=== PATIENT | female | born 1995 | race African-American/Black ===

== ENCOUNTER 2016-04-17 22:13 | Emergency (ER) | payer OTHER ==
[~2016-04-17] VITALS: Ht 167.6 cm; Wt 83.3 kg
[2016-04-17 22:14] VITALS: BP 103/64; PULSE 84; RESP 18; TEMP 97.4; O2SAT 99
--- NOTE | 2016-04-17 22:41 | PD ---
HPI Chief Complaint: R EAR PAIN Time Seen by Provider: 22:35 Travel History International Travel<30 days: No Contact w/Intl Traveler<30days: No History of Present Illness HPI Patient is a 20-year-old female chief complaint of right ear pain. Present for 6 weeks. Present daily. It is achy and sometimes sharp. She feels like sound is muffled. No history of cerumen impaction. She did put peroxide in the ear canal which did not help. She denies otorrhea. She denies tinnitus and dizziness. She denies fevers. She does have some intermittent nasal irritation but denies any acute nose or throat symptoms. She has a history of asthma and allergies as a child. She denies current . [facility] [place] Past Medical History Asthma: Yes Diminished Hearing: No Gastrointestinal Disorders: No Immunizations Current: Yes Past Surgical History Other Surgery: No Social History Alcohol Use: No Tobacco Use: No Substance Use: No Allergies-Medications (Allergen,Severity, Reaction): Coded Allergies: No Known Allergies (Verified , 02/24/16) Reported Meds & Prescriptions Reported Meds & Active Scripts Active Active Prescriptions or Reported Medications Unobtainable Review of Systems General / Constitutional: No: Fever HENT: Positive: Rhinitis (intermittent, chronic), Earache, No: Vertigo, Lightheadedness, Sore Throat, Rhinorrhea, Congestion, Ear Discharge Respiratory: No: Cough Physical Exam Narrative GENERAL: Well-developed and well-nourished adult female in no acute distress. SKIN: Warm and dry. Good turgor without tenting. HEAD: Normocephalic and atraumatic. EYES: PERRL bilaterally, 5mm. EOMI bilaterally. No injection or icterus present. No proptosis. Lids without edema or erythema. ENT: Bilateral ear canals are non-edematous/non-erythematous without otorrhea. Right TM is slightly bulging and there is a small air-fluid level without evidence of perforation or erythema. Left TM has intact landmarks and without distortion, perforation, air-fluid level or erythema. Nasal mucosa edematous, blue and boggy without discharge, septum intact and midline. Buccal mucosa pink and moist. Oropharynx free of erythema, tonsillar hypertrophy, masses, swelling , asymmetry and exudates. Uvula midline and airway patent. NECK: Supple, no midline tenderness, crepitus or step-offs. Trachea midline, no JVD. No cervical or facial lymphadenopathy. CARDIOVASCULAR: Regular rate and rhythm without murmurs, rubs, clicks or gallops. RESPIRATORY: Clear to auscultation bilaterally with symmetrical rise and fall, no distress or use of accessory muscles. MUSCULOSKELETAL: No gait disturbances. Patient freely moving all four extremities spontaneously. Extremities without clubbing, cyanosis, or edema. No obvious deformities. NEUROLOGIC: CN II-XII grossly intact. Awake and alert. Motor grossly within normal limits. Normal speech. PSYCHIATRIC: Appropriate mood and affect; insight and judgment normal. Data Data Last Documented VS Vital Signs Date Time Temp Pulse Resp B/P Pulse Ox O2 Delivery O2 Flow Rate FiO2 04/17/16 22:14 97.4 84 18 103/64 99 MDM Medical Decision Making Medical Screen Exam Complete: Yes Emergency Medical Condition: Yes Differential Diagnosis Eustachian tube dysfunction versus otitis media versus otitis externa versus allergies Narrative Course Patient is a 20-year-old female with history and physical suggestive of eustachian tube dysfunction. She has evidence of rhinitis as well, likely allergic. She is afebrile there is no sign of infection. Recommend OTC products and follow-up with PCP.See discharge paperwork for further instructions. The plan was discussed with the patient who acknowledged their understanding and agreement. Reinforced the follow-up with primary care is critically important. Patient instructed on emergent conditions that should prompt return to ED. Diagnosis Primary Impression: Eustachian tube dysfunction Qualified Code: H69.81 - Eustachian tube dysfunction, right Patient Instructions: Eustachian Tube Dysfunction (GEN), General Instructions Additional Instructions: Recommend the following OTC products: -Zyrtec -Nasacort nasal spray -Pseudoephedrine or other decongestants Follow-up with your PCP in 2-3 days Return to the ED for any acute worsening of symptoms Scripts No Active Prescriptions or Reported Meds Disposition: 01 DISCHARGE HOME Condition: Stable Haris Rollins III Apr 17, 2016 22:41
== END 2016-04-17 23:08 | disposition home or self-care (01) ==
LOC: PHEFT 22:13
DX: H69.81 Other specified disorders of Eustachian tube, right ear (principal); J31.0 Chronic rhinitis; Z87.09 Personal history of other diseases of the respiratory system
CPT/HCPCS: 99282

== ENCOUNTER 2016-05-22 19:03 | Emergency (ER) | payer OTHER ==
[~2016-05-22] VITALS: Ht 168.9 cm; Wt 85.8 kg
[2016-05-22 19:05] VITALS: BP 106/73; PULSE 91; RESP 18; TEMP 98.3; O2SAT 98
--- NOTE | 2016-05-22 19:34 | PD ---
HPI Chief Complaint: Numbness/Tingling Time Seen by Provider: 19:16 Travel History International Travel<30 days: No Contact w/Intl Traveler<30days: No Traveled to known affect area: No History of Present Illness HPI 20-year-old female complains of headache, left-sided numbness and weakness. Patient states that she has intermittent headache for the past 4 months. Patient states that headache aching headache diffuse over the head. Patient states that she has mild photophobia and nausea with the headache. Patient denies any recent head injury. Patient denies any neck pain. Patient denies any chest pain or shortness of breath. Patient states that she has intermittent left arm left leg numbness and weakness for the past 3 weeks. Patient states that the symptoms usually happen at night and lasted about 2 minutes and resolved completely. Patient denies abdominal pain. Patient denies any dysuria or frequency. Patient denies any fever chills. PFSH Past Medical History Asthma: Yes Diminished Hearing: No Gastrointestinal Disorders: No Immunizations Current: Yes ?: Not LMP: 05-07-16 Past Surgical History Other Surgery: No Social History Alcohol Use: No Tobacco Use: No Substance Use: No Allergies-Medications (Allergen,Severity, Reaction): Coded Allergies: No Known Allergies (Verified , 05/22/16) Reported Meds & Prescriptions Reported Meds & Active Scripts Active Active Prescriptions or Reported Medications Unobtainable Review of Systems General / Constitutional: No: Fever Eyes: No: Visual changes HENT: Positive: Headaches Cardiovascular: No: Chest Pain or Discomfort Respiratory: No: Shortness of Breath Gastrointestinal: No: Abdominal Pain Genitourinary: No: Dysuria Musculoskeletal: No: Pain Skin: No Rash Neurologic: Positive: Weakness, Paresthesia Psychiatric: No: Depression Endocrine: No: Polydipsia Hematologic/Lymphatic: No: Easy Bruising Physical Exam Narrative GENERAL: Well-nourished, well-developed patient. SKIN: Warm and dry. HEAD: Normocephalic. EYES: No scleral icterus. No injection or drainage. Pupils 2 mm equal reactive. NECK: Supple, trachea midline. No JVD or lymphadenopathy. No meningismus. No tenderness on palpation. CARDIOVASCULAR: Regular rate and rhythm without murmurs, gallops, or rubs. RESPIRATORY: Breath sounds equal bilaterally. No accessory muscle use. GASTROINTESTINAL: Abdomen soft, non-tender, nondistended. MUSCULOSKELETAL: No cyanosis, or edema. BACK: Nontender without obvious deformity. No CVA tenderness. Neurologic exam: Patient's awake alert oriented 3. No obvious focal neurological deficit. Data Data Last Documented VS Vital Signs Date Time Temp Pulse Resp B/P Pulse Ox O2 Delivery O2 Flow Rate FiO2 05/22/16 19:20 16 98 Room Air 05/22/16 19:05 98.3 91 106/[address] Brain W/O Iv Contrast(Rout) (05/22/16 19:28) [facility] Medical Decision Making Medical Screen Exam Complete: Yes Emergency Medical Condition: Yes Interpretation(s) Last Impressions Head CT 05/22/161927 Signed Impressions: Service Date/Time: Sunday, May 22, 2016 19:41 - CONCLUSION: Negative noncontrast CT. Victor Hugo Pena MD Differential Diagnosis Differential diagnosis including tension headache, cluster headache, migraine headache, neuropathy, neuralgia, TIA, CVA. Narrative Course 20-year-old female with headache, intermittent weakness and numbness of left arm left leg. Diagnosis Primary Impression: Cephalgia Qualified Code: R51 - Nonintractable episodic headache, unspecified headache type Additional Impression: Neuralgia Patient Instructions: General Instructions Additional Instructions: Fioricet as needed for headache. Follow-up with personal physician and neurologist. Return if worse. Med/Other Pt SpecificInfo: Prescription(s) given Scripts Exzvxglqmg-Rjnzmzqotpdjg-Jfqbhatd (Fioricet)50-300-40 Mg Cap1-2 Cap PO Q6H PRN ( HEADACHE) #20 CAP Ref 0 Prov:Azael Nelson MD 05/22/16 Disposition: 01 DISCHARGE HOME Condition: Stable Azael Nelson MD May 22, 2016 19:34
--- NOTE | 2016-05-22 20:10 | RADHPO ---
EXAM DATE/TIME: 05/22/2016 19:41 [facility] COMPARISON: No previous studies available for comparison. INDICATIONS : Headaches with left sided weakness for two weeks. RADIATION DOSE: 60.51 CTDIvol (mGy) MEDICAL HISTORY : None SURGICAL HISTORY : None. ENCOUNTER: Initial ACUITY: 2 weeks PAIN SCALE: 5/10 LOCATION: cranial TECHNIQUE: Multiple contiguous axial images were obtained of the head. Using automated exposure control and adj ustment of the mA and/or kV according to patient size, radiation dose was kept as low as reasonably a chievable to obtain optimal diagnostic quality images. FINDINGS: CEREBRUM: The ventricles are normal for age. No evidence of midline shift, mass lesion, hemorrhage or acute in farction. No extra-axial fluid collections are seen. POSTERIOR FOSSA: The cerebellum and brainstem are intact. The 4th ventricle is midline. The cerebellopontine angle i s unremarkable. EXTRACRANIAL: The visualized portion of the orbits is intact. SKULL: The calvaria is intact. No evidence of skull fracture. CONCLUSION: Negative noncontrast CT. Victor Hugo Pena MD on May 22, 2016 at 20:01 Board Certified Radiologist. This report was verified electronically.
[2016-05-22] MEDS ORDERED: BUTA1CAP PO (20:41)
[2016-05-22 20:51] VITALS: BP 90/54
== END 2016-05-22 20:53 | disposition home or self-care (01) ==
LOC: PHED 19:03
DX: R51 Headache (principal); M79.2 Neuralgia and neuritis, unspecified; R20.0 Anesthesia of skin; M62.81 Muscle weakness (generalized); J45.909 Unspecified asthma, uncomplicated
CPT/HCPCS: 70450

== ENCOUNTER 2016-06-23 17:50 | Emergency (ER) | payer OTHER ==
[~2016-06-23] VITALS: Ht 167.6 cm; Wt 87.6 kg
[~2016-06-23 17:50] MED LIST: BUTA1CAP PO
[2016-06-23 17:52] VITALS: BP 119/55; PULSE 88; RESP 16; TEMP 98.2; O2SAT 98
--- NOTE | 2016-06-23 17:58 | PD ---
HPI Chief Complaint: Chest Pain Time Seen by Provider: 17:58 Travel History International Travel<30 days: No Contact w/Intl Traveler<30days: No Traveled to known affect area: No History of Present Illness HPI 20-year-old female came to the emergency room with history of on and off chest pain for past 1-2 weeks. Patient points to the middle of her chest and says sometimes it radiates to the left hand side. She describes the pain as sharp when it comes and makes her chest came in. Currently she says she has no pain. Her last episode was an hour ago when she was driving. No history of syncopal episode or shortness of breath. No aggravating or relieving factors. Vital signs were stable. Patient is otherwise a healthy person. She is not a smoker. No recent long distance travel or any hospitalization or procedures. [facility] Past Medical History Narrative Medical List of her past medical, surgical, social and family history was reviewed from the nursing note. Asthma: Yes Diminished Hearing: No Gastrointestinal Disorders: No Immunizations Current: Yes ?: Not LMP: 06/01/2016 Past Surgical History Other Surgery: No Social History Alcohol Use: No Tobacco Use: No Substance Use: No Allergies-Medications (Allergen,Severity, Reaction): Coded Allergies: No Known Allergies (Verified , 06/24/16) Comments No known drug allergies. Reported Meds & Prescriptions Reported Meds & Active Scripts Active No Active Prescriptions or Reported Medications Narrative Medication List of her home medications reviewed from the nursing note. Review of Systems Except as stated in HPI: all other systems reviewed are Neg Physical Exam Narrative GENERAL: Awake, alert, no obvious distress SKIN: Focused skin assessment warm/dry. HEAD: Atraumatic. Normocephalic. EYES: Pupils equal and round. No scleral icterus. No injection or drainage. ENT: No nasal bleeding or discharge. Mucous membranes pink and moist. NECK: Trachea midline. No JVD. CARDIOVASCULAR: Regular rate and rhythm. No murmur appreciated. RESPIRATORY: No accessory muscle use. Clear to auscultation. Breath sounds equal bilaterally. No tenderness over the chest area on palpation GASTROINTESTINAL: Abdomen soft, non-tender, nondistended. Hepatic and splenic margins not palpable. MUSCULOSKELETAL: No obvious deformities. No clubbing. No cyanosis. No edema. NEUROLOGICAL: Awake and alert. No obvious cranial nerve deficits. Motor grossly within normal limits. Normal speech. PSYCHIATRIC: Appropriate mood and affect; insight and judgment normal. Data Data Last Documented VS Orders Electrocardiogram (06/23/16 ) Chest, Pa & Lat (06/23/16 ) [facility] Medical Decision Making Medical Screen Exam Complete: Yes Emergency Medical Condition: Yes Medical Record Reviewed: Yes Interpretation(s) Twelve-lead EKG was reviewed by me. Normal sinus rhythm, normal axis, nonspecific ST-T wave changes. Heart rate of 85 bpm Differential Diagnosis Costochondritis, muscle pain, chest wall pain Narrative Course 6:40 PM chest x-ray was within normal limits. Given the fact that patient has noticed factor and her age I'm comfortable discharging her home based on the normal EKG and chest x-ray. She will go home with instructions which I have discussed with her as well. She is comfortable with this plan. Procedures EKG Prior to Arrival: No Diagnosis Primary Impression: Nonspecific chest pain Referrals: Primary Care Physician Additional Instructions: Please return to the ER if the condition worsens or any other new concerns. Take Motrin/ibuprofen/Advil or Tylenol for pain. Warm compresses alternating with cold compresses if the pain returns. Follow-up with your primary care. Scripts No Active Prescriptions or Reported Meds Disposition: DISCHARGE HOME Condition: Eduardo Cherry MD Jun 23, 2016 17:58 Please return to the ER if the condition worsens or any other new concerns. Take Motrin/ibuprofen/Advil or Tylenol for pain. Warm compresses alternating with cold compresses if the pain returns. Follow-up with your primary care. Scripts No Active Prescriptions or Reported Meds Disposition: DISCHARGE HOME Condition: Eduardo Cherry MD Jun 23, 2016 17:58
--- NOTE | 2016-06-23 18:40 | RADHPO ---
EXAM DATE/TIME: 06/23/2016 18:22 [facility] COMPARISON: CHEST PA & LAT, January 10, 2015, 20:59. INDICATIONS : Chest pain. MEDICAL HISTORY : None. SURGICAL HISTORY : None. ENCOUNTER: Initial ACUITY: 1 week PAIN SCORE: Non-responsive. LOCATION: Bilateral chest FINDINGS: PA and lateral views of the chest demonstrate the lungs to be symmetrically aerated without evidence of mass, infiltrate or effusion. The cardiomediastinal contours are unremarkable. Osseous structure s are intact. CONCLUSION: Normal examination. Gamaliel Montoya Jr., MD on June 23, 2016 at 18:38 Board Certified Radiologist. This report was verified electronically.
[2016-06-23 18:52] VITALS: BP 120/60; PULSE 86; RESP 16; O2SAT 100
--- NOTE | 2016-06-24 13:51 | EKG ---
Date Performed: 06/23/2016 Time Performed: 18:31:34 PTAGE: 20 years EKG: Sinus rhythm Normal ECG Compared to prior tracing no significant change PREVIOUS TRACING 02/24/2016 21.11 DOCTOR: Herbie Mejía Interpretating Date/Time 06/24/2016 13:49:06
== END 2016-06-23 19:05 | disposition home or self-care (01) ==
LOC: PHED 17:50
DX: R07.9 Chest pain, unspecified (principal); Z87.09 Personal history of other diseases of the respiratory system
CPT/HCPCS: 71020; 93005

== ENCOUNTER 2016-06-24 17:10 | Emergency (ER) | payer OTHER ==
[~2016-06-24] VITALS: Ht 170.2 cm; Wt 82.0 kg
[2016-06-24 17:13] VITALS: BP 134/57; PULSE 86; RESP 15; TEMP 98.2; O2SAT 98
--- NOTE | 2016-06-24 17:22 | PD ---
Physical Exam Time Seen by Provider: 17:20 Narrative 20yo F c/o rash to Left lower leg today. Was at beach and thinks she may have been stung by something. Reports bleeding under all her toenails that resolved. Denies fever, vomiting. Denies SOB, airway edema. Patient stable. Patient seen in triage. Awaiting bed placement. Data Data Last Documented VS Vital Signs Date Time Temp Pulse Resp B/P Pulse Ox O2 Delivery O2 Flow Rate FiO2 06/24/16 17:13 98.2 86 15 134/57 98 MDM Supervised Visit with DARCY: No Scripts No Active Prescriptions or Reported Meds Adelaida Bradshaw Jun 24, 2016 17:22
--- NOTE | 2016-06-24 17:34 | PD ---
HPI . possible organism sting from ocean life Chief Complaint: Skin Problem Time Seen by Provider: 17:34 Travel History International Travel<30 days: No Contact w/Intl Traveler<30days: No Traveled to known affect area: No History of Present Illness HPI 20 year-old female here with complaints of possibly being stung by something while at the beach. Patient says she was in the water and felt something and thinks she may have been stung. She doubts it was a jellyfish. She tells me that her bilateral toenails were bleeding and that is difficult to see because of her nail turkmen. She has a slight irritation to the left anterior elkins and lateral ankle, but is clearing up and very difficult to see at this time. She tells me that it was a little bit more red prior to examination. She denies any shortness of breath or angioedema. She has no itching. She was asked to remove the nailpolish from her toes for better visualization. PFSH Past Medical History Asthma: Yes Diminished Hearing: No Gastrointestinal Disorders: No Immunizations Current: Yes ?: Not LMP: 06/05/2016 Past Surgical History Other Surgery: No Social History Alcohol Use: No Tobacco Use: No Substance Use: No Allergies-Medications (Allergen,Severity, Reaction): Coded Allergies: No Known Allergies (Verified , 06/24/16) Reported Meds & Prescriptions Reported Meds & Active Scripts Active No Active Prescriptions or Reported Medications Review of Systems General / Constitutional: No: Fever Eyes: No: Visual changes HENT: No: Headaches Cardiovascular: No: Chest Pain or Discomfort Respiratory: No: Shortness of Breath Gastrointestinal: No: Abdominal Pain Genitourinary: No: Dysuria Musculoskeletal: No: Pain Skin: Positive Rash (red rash), Positive Other (bleeding toenails) Neurologic: No: Weakness Psychiatric: No: Depression Endocrine: No: Polydipsia Hematologic/Lymphatic: No: Easy Bruising Physical Exam Narrative GENERAL: AAO x 3, no acute distress, Well-nourished, well-developed patient. SKIN: Warm and dry. No visible rashes or bruising. small skin colored papules seen over anterior elkins, seem to be clearing up, no open wound seen on body,no blood seen near toenails. There is red nail turkmen on all toes and it comes off easily HEAD: Normocephalic and atraumatic. EYES: No scleral icterus. No injection or drainage. ENT: No nasal drainage noted. Mucous membranes pink. Airway patent. no posterior pharynx edema or angioedema NECK: Supple, trachea midline. No JVD. CARDIOVASCULAR: Regular rate and rhythm without murmurs, gallops, or rubs. RESPIRATORY: Breath sounds equal bilaterally. No accessory muscle use. No rhonchi or rales. GASTROINTESTINAL: She'll inspection is normal EXTREMITIES: No cyanosis or edema. BACK: Nontender without obvious deformity. No CVA tenderness. PSYCH: AAO x 3, normal affect. Data Data Last Documented VS Vital Signs Date Time Temp Pulse Resp B/P Pulse Ox O2 Delivery O2 Flow Rate FiO2 06/24/16 17:13 98.2 86 15 134/57 98 MDM Medical Decision Making Medical Screen Exam Complete: Yes Emergency Medical Condition: Yes Medical Record Reviewed: Yes Differential Diagnosis Possible allergic reaction, marine life sting, less likely cellulitis Narrative Course 20 year-old female here with complaints of possibly being stung by something while at the beach. Patient says she was in the water and felt something and thinks she may have been stung. She doubts it was a jellyfish. She tells me that her bilateral toenails were bleeding and that is difficult to see because of her nail turkmen. She has a slight irritation to the left anterior elkins and lateral ankle, but is clearing up and very difficult to see at this time. She tells me that it was a little bit more red prior to examination. She denies any shortness of breath or angioedema. She has no itching. She was asked to remove the nailpolish from her toes for better visualization. Patient seen and examined. She has a slight papular rash on the lower anterior elkins and leg (left).Right leg normal. I do not seen any bite santiago. She has no evidence of allergic reaction. Her main concern is that she is trying to figure out what may have bitten her. I've explained to her that unfortunately I cannot help her figure that out. I do not see any need for treatment. This is not a case of anaphylaxis. I recommend that if she develops any rash, shortness of breath or swelling, return to the emergency department immediately. Patient verbalized understanding of instructions. Diagnosis Primary Impression: Allergic reaction Qualified Code: T78.40XA - Allergic reaction, initial encounter Patient Instructions: General Instructions Additional Instructions: If you develop any itching, use Benadryl cream. If your symptoms return or worsen, go to the nearest emergency department. Med/Other Pt SpecificInfo: No Meds Exist/No RX given Scripts No Active Prescriptions or Reported Meds Disposition: 01 DISCHARGE HOME Condition: Stable Kyara Stout Jun 24, 2016 17:34
== END 2016-06-24 18:25 | disposition home or self-care (01) ==
LOC: NEPK 17:10
DX: T78.40XA Allergy, unspecified, initial encounter (principal); J45.909 Unspecified asthma, uncomplicated
CPT/HCPCS: 99282

== ENCOUNTER 2016-07-01 21:28 | Emergency (ER) | payer OTHER ==
[~2016-07-01] VITALS: Ht 168.9 cm; Wt 86.0 kg
[2016-07-01 21:34] VITALS: BP 112/77; PULSE 86; RESP 16; TEMP 98.5; O2SAT 98
[2016-07-01 22:46] VITALS: BP 131/69; PULSE 88; RESP 19; O2SAT 99
--- NOTE | 2016-07-02 10:12 | EKG ---
Date Performed: 07/01/2016 Time Performed: 21:37:34 PTAGE: 20 years EKG: --- Warning: Data quality may affect interpretation --- Sinus rhythm Normal ECG NO SIGNIFICANT CHANGE FROM PRIOR ELECTROCARDIOGRAM. PREVIOUS TRACING : 06/23/2016 18.31 DOCTOR: Baltazar Barker Interpretating Date/Time 07/02/2016 10:12:24
== END 2016-07-01 23:30 | disposition left against medical advice (07) ==
LOC: PHED 21:28
DX: Z53.21 Procedure and treatment not carried out due to patient leaving prior to being seen by health care provider (principal)
CPT/HCPCS: 93005; 99281

== ENCOUNTER 2016-07-04 23:46 | Emergency (ER) | payer OTHER ==
[~2016-07-04] VITALS: Ht 167.6 cm; Wt 88.9 kg
[2016-07-04 23:50] VITALS: BP 111/76; PULSE 80; RESP 18; TEMP 98.8; O2SAT 99
[2016-07-05 00:03] VITALS: BP 111/46; PULSE 80; RESP 16; TEMP 98.8; O2SAT 99
[2016-07-05] MEDS ORDERED: HYDR50TA94 PO (00:18)
[2016-07-05] MEDS ORDERED: KETOROLAC TROMETHAMINE 30 MG/ML (IVP) VIAL IV PUSH ONE (00:30)
[2016-07-05] MEDS ORDERED: SODIUM CHLORID 0.9% 500 ML INJ 500 ML IV ONE (00:30)
[2016-07-05] MEDS ORDERED: LORazepam 2 MG/ML VIAL IV PUSH ONE (00:30)
--- NOTE | 2016-07-05 00:35 | PD ---
HPI Chief Complaint: ENT Complaint Time Seen by Provider: 00:17 Travel History International Travel<30 days: No Contact w/Intl Traveler<30days: No Traveled to known affect area: No History of Present Illness HPI 20yo F with PMH of anxiety presents with multiple complaints. Pt has been here multiple times before for minor complaints. States that she has been having right ear pain for months and also has mild headache and feels like her chest is caving in at times. Also had asthma when she was young and feel that it may be coming back. Denies any fever, sob, n/v, abdominal pain. PFSH Past Medical History Asthma: Yes Anxiety: Yes Diminished Hearing: No Gastrointestinal Disorders: No Immunizations Current: Yes Tetanus Vaccination: Unknown Influenza Vaccination: No ?: Not LMP: 07-03-16 : 0 Past Surgical History Other Surgery: No Social History Alcohol Use: No Tobacco Use: No Substance Use: No Allergies-Medications (Allergen,Severity, Reaction): Coded Allergies: No Known Allergies (Verified , 07/05/16) Reported Meds & Prescriptions Reported Meds & Active Scripts Active Reported Hydroxyzine HCl 50 Mg Tab 50 Mg PO BID Review of Systems Except as stated in HPI: all other systems reviewed are Neg Physical Exam Narrative GENERAL: 20yo F not in distress. SKIN: Focused skin assessment warm/dry. HEAD: Atraumatic. Normocephalic. EYES: Pupils equal and round. No scleral icterus. No injection or drainage. ENT: TM wnl bilaterally. No erythema or effusion. NECK: Trachea midline. No JVD. CARDIOVASCULAR: Regular rate and rhythm. No murmur appreciated. RESPIRATORY: No accessory muscle use. Clear to auscultation. Breath sounds equal bilaterally. GASTROINTESTINAL: Abdomen soft, non-tender, nondistended. MUSCULOSKELETAL: No obvious deformities. No clubbing. No cyanosis. No edema. NEUROLOGICAL: Awake and alert. No obvious cranial nerve deficits. Motor grossly within normal limits. Normal speech. Data Data Last Documented VS Vital Signs Date Time Temp Pulse Resp B/P Pulse Ox O2 Delivery O2 Flow Rate FiO2 07/05/16 00:03 98.8 80 16 111/46 99 Orders Ketorolac Inj (Toradol Inj) (07/05/16 00:30) Sodium Chlorid 0.9% 500 Ml Inj (Ns 500 M (07/05/16 00:30) Lorazepam Inj (Ativan Inj) (07/05/16 00:30) [facility] Medical Decision Making Medical Screen Exam Complete: Yes Emergency Medical Condition: Yes Differential Diagnosis Anxiety vs. migraine headache Narrative Course 20yo F with history of anxiety here with panic attack. Pt given ativan 1mg IV and toradol and NS IVF. Pt reevaluated at bedside and feels much better. Headache has resolved and she no longer feels impending doom. Pt has PMD and hydroxyzine at home. Return precautions given. Diagnosis Primary Impression: Anxiety Patient Instructions: General Instructions Departure Forms: Tests/Procedures Additional Instructions: Please follow up with your PMD in 3-7 days. Return to the ED if symptoms worsen. Med/Other Pt SpecificInfo: No Change to Meds Disposition: 01 DISCHARGE HOME Condition: Stable Magnolia Alfaro DO July 05, 2016 00:35
[2016-07-05 02:00] VITALS: BP 125/70
== END 2016-07-05 02:07 | disposition home or self-care (01) ==
LOC: PHED 23:46
DX: F41.9 Anxiety disorder, unspecified (principal)
CPT/HCPCS: 96374; 96375; 99283; J1885; J2060; J7040

== ENCOUNTER 2016-07-19 04:53 | Emergency (ER) | payer OTHER ==
[~2016-07-19] VITALS: Ht 170.2 cm; Wt 90.9 kg
[~2016-07-19 04:53] MED LIST changes: -BUTA1CAP PO; +HYDR50TA94 PO
[2016-07-19 04:58] VITALS: BP 111/72; PULSE 81; RESP 16; TEMP 97.8; O2SAT 99
--- NOTE | 2016-07-19 05:28 | PD ---
HPI Chief Complaint: Abdominal Pain Time Seen by Provider: 05:13 Travel History International Travel<30 days: No Contact w/Intl Traveler<30days: No Traveled to known affect area: No History of Present Illness HPI The patient is a 20-year-old female, frequent visitor to this emergency department who complains of generalized intermittent abdominal pain for a week. She has no pain now and she does not have nausea, vomiting or diarrhea. She denies any fever. She denies any dysuria but does have frequency of urination. She states there is no possibility of . The patient states she often gets this pain after eating. PFSH Past Medical History Asthma: Yes (as a child) Anxiety: Yes Diminished Hearing: No Gastrointestinal Disorders: No Immunizations Current: Yes ?: Not LMP: Jun : 0 Past Surgical History Other Surgery: No Social History Alcohol Use: No Tobacco Use: No Substance Use: No Allergies-Medications (Allergen,Severity, Reaction): Coded Allergies: No Known Allergies (Verified , 07/19/16) Reported Meds & Prescriptions Reported Meds & Active Scripts Active No Active Prescriptions or Reported Medications Review of Systems Except as stated in HPI: all other systems reviewed are Neg Physical Exam Narrative GENERAL: The patient is alert, oriented 3 in no apparent distress. Her vital signs are normal. SKIN: Focused skin assessment warm/dry. HEAD: Atraumatic. Normocephalic. EYES: Pupils equal and round. No scleral icterus. No injection or drainage. ENT: No nasal bleeding or discharge. Mucous membranes pink and moist. NECK: Trachea midline. No JVD. CARDIOVASCULAR: Regular rate and rhythm. No murmur appreciated. RESPIRATORY: No accessory muscle use. Clear to auscultation. Breath sounds equal bilaterally. GASTROINTESTINAL: Abdomen soft, non-tender, nondistended. Hepatic and splenic margins not palpable. No guarding or rebound is present. MUSCULOSKELETAL: No obvious deformities. No clubbing. No cyanosis. No edema. NEUROLOGICAL: Awake and alert. No obvious cranial nerve deficits. Motor grossly within normal limits. Normal speech. PSYCHIATRIC: Appropriate mood and affect; insight and judgment normal. Data Data Last Documented VS Vital Signs Date Time Temp Pulse Resp B/P Pulse Ox O2 Delivery O2 Flow Rate FiO2 07/19/16 06:10 72 16 106/69 98 Room Air 07/19/16 04:58 97.8 Orders Basic Metabolic Panel (Bmp) (5/15/17 05:28) Complete Blood Count With Diff (07/19/16 05:28) Urinalysis - C+S If Indicated (07/19/16 05:28) Iv Access Insert/Monitor (07/19/16 05:28) Ecg Monitoring (07/19/16 05:28) Oximetry (07/19/16 05:28) Sodium Chloride 0.9% Flush (Ns Flush) (07/19/16 05:30) Ed Urine Pregnancytest Poc (07/19/16 05:28) Urine Culture (07/19/16 05:27) Labs Laboratory Tests Test 07/19/16 05:27 White Blood Count 13.0 TH/MM3 Red Blood Count 4.96 MIL/MM3 Hemoglobin 13.0 GM/DL Hematocrit 38.0 % Mean Corpuscular Volume 76.7 FL Mean Corpuscular Hemoglobin 26.2 PG Mean Corpuscular Hemoglobin 34.2 % Concent Red Cell Distribution Width 13.9 % Platelet Count 297 TH/MM3 Mean Platelet Volume 7.6 FL Neutrophils (%) (Auto) 59.9 % Lymphocytes (%) (Auto) 27.2 % Monocytes (%) (Auto) 6.7 % Eosinophils (%) (Auto) 2.9 % Basophils (%) (Auto) 3.3 % Neutrophils # (Auto) 7.8 TH/MM3 Lymphocytes # (Auto) 3.5 TH/MM3 Monocytes # (Auto) 0.9 TH/MM3 Eosinophils # (Auto) 0.4 TH/MM3 Basophils # (Auto) 0.4 TH/MM3 CBC Comment DIFF FINAL Differential Comment Urine Color YELLOW Urine Turbidity SLIGHT Urine pH 7.0 Urine Specific [place] 1.026 Urine Protein TRACE mg/dL Urine Glucose (UA) NEG mg/dL Urine Ketones NEG mg/dL Urine Occult Blood NEG Urine Nitrite NEG Urine Bilirubin NEG Urine Leukocyte Esterase NEG Urine Squamous Epithelial > 8 /hpf Cells Urine Bacteria MOD /hpf Urine Mucus OCC /lpf Microscopic Urinalysis Comment CULTURE INDICATED Sodium Level 141 MEQ/L Potassium Level 3.5 MEQ/L Chloride Level 106 MEQ/L Carbon Dioxide Level 29.4 MEQ/L Anion Gap 6 MEQ/L Blood Urea Nitrogen 10 MG/DL Creatinine 0.82 MG/DL Estimat Glomerular Filtration 109 ML/MIN Rate Random Glucose 90 MG/DL Calcium Level 8.6 MG/DL [facility] Medical Decision Making Medical Screen Exam Complete: Yes Emergency Medical Condition: Yes Medical Record Reviewed: Yes Interpretation(s) The CBC shows a white count of 13,000 but is otherwise unremarkable. The basic metabolic profile is normal. Differential Diagnosis Intestinal colic, appendicitishighly unlikely, cholecystitishighly unlikely, colitis, gastroenteritis, gastrocolic reflex Narrative Course The patient appears to have intestinal colic. It happens when the gastrocolic reflex takes effect and she feels pains diffusely over the abdomen. It then goes away. Diagnosis Primary Impression: Intestinal colic Additional Instructions: As we discussed, follow-up with your primary care physician. Increase liquid intake to make sure your stools don't get hard. Med/Other Pt SpecificInfo: No Change to Meds Scripts No Active Prescriptions or Reported Meds Disposition: 01 DISCHARGE HOME Condition: Stable Gm Brooks MD July 19, 2016 05:27
[2016-07-19] MEDS ORDERED: SODIUM CHLORIDE 0.9% FLUSH 10 ML FLUSH IV FLUSH PRN (05:30)
[2016-07-19 05:48] LABS: AUTOMATED NEUTROPHIL # 7.8 TH/MM3 (1.8-7.7); BASOPHIL # 0.4 TH/MM3 (0-0.2); BASOPHIL % 3.3 % (0.0-2.0); EOSINOPHIL # 0.4 TH/MM3 (0-0.4); EOSINOPHIL % 2.9 % (0.0-4.0); HEMO FLAGS DIFF FINAL; LYMPH % 27.2 % (9.0-44.0); LYMPHOCYTE # 3.5 TH/MM3 (1.0-4.8); MEAN CELL VOLUME 76.7 FL (80.0-100.0); MEAN CORPUSCULAR HEMOGLOBIN 26.2 PG (27.0-34.0); MEAN CORPUSCULAR HGB CONC 34.2 % (32.0-36.0); MONO % 6.7 % (0.0-8.0); NEUT % 59.9 % (16.0-70.0); PLATELET COUNT 297 TH/MM3 (150-450); RED BLOOD COUNT 4.96 MIL/MM3 (4.00-5.30); RED CELL DISTRIBUTION WIDTH 13.9 % (11.6-17.2)
[2016-07-19 05:57] LABS: POTASSIUM 3.5 MEQ/L (3.5-5.1)
[2016-07-19 05:58] LABS: BLOOD, URINE NEG (NEG); GLUCOSE,URINE NEG (NEG); KETONE, URINE NEG (NEG); NITRITE,URINE NEG (NEG)
[2016-07-19 06:00] LABS: BICARBONATE 29.4 MEQ/L (21.0-32.0)
[2016-07-19 06:06] LABS: URINE COLOR YELLOW (YELLW/STRAW)
[2016-07-19 06:07] LABS: MUCUS URINE OCC /lpf (OCC); SQUAMOUS EPITHELIAL CELL URINE > 8 /hpf (0-5)
[2016-07-19 06:09] LABS: BACTERIA, URINE MOD /hpf; COMMENT (UR) CULTURE INDICATED; CULTURE IF INDICATED CULTURE INDICATED
[2016-07-19 06:10] VITALS: BP 106/69; PULSE 72; RESP 16; O2SAT 98
[2016-07-19] MEDS ORDERED: CIPROFLOXACIN 500 MG TAB PO ONE (06:45)
[2016-07-19] MEDS ORDERED: CIPR-9 PO (06:46)
[2016-07-19 06:54] VITALS: BP 106/66
== END 2016-07-19 06:56 | disposition home or self-care (01) ==
LOC: PHED 04:53
DX: R10.84 Generalized abdominal pain (principal); J45.909 Unspecified asthma, uncomplicated; F41.9 Anxiety disorder, unspecified
CPT/HCPCS: 80048; 81001; 84703; 85025; 87086; 99284

== ENCOUNTER 2016-07-25 00:02 | Emergency (ER) | payer OTHER ==
[~2016-07-25] VITALS: Ht 167.6 cm; Wt 90.5 kg
[~2016-07-25 00:02] MED LIST changes: +CIPR-9 PO; -HYDR50TA94 PO
[2016-07-25 00:07] VITALS: BP 111/70; PULSE 77; RESP 12; TEMP 98.5; O2SAT 100
--- NOTE | 2016-07-25 01:16 | PD ---
HPI Chief Complaint: Chest Pain Time Seen by Provider: 00:46 Travel History International Travel<30 days: No Contact w/Intl Traveler<30days: No Traveled to known affect area: No History of Present Illness HPI 20 year-old female presents to the emergency department by private transportation for complaint of 4 days of chest pain. Patient states discomfort is a pressure and sometimes feels as if her chest is caving in on her. Patient denies prior history of chest pain. Patient states that she has fibrocystic breast changes and is concerned that this may be reflective of that. Patient also reports that she was just recently seen here in the emergency department history on antibiotic for urinary tract infection. Patient 's last period was 07/02/16. Patient states menses was normal and denies . Patient's had no fever or chills. Does not report any shortness of breath. Patient denies wheezing or cough. Patient reports childhood asthma but no recent episodes of shortness of breath. No pleuritic chest pain. No tobacco use or control pill use. Does not report personal history family history of DVT or PE. Patient has taken no medications to address her discomfort. Patient rates her discomfort 8/10 in intensity but states that she was helmeted would be much worse. Patient has had multiple visits to the emergency department for various concerns and complaints of discomfort. PFSH Past Medical History Narrative Medical Childhood asthma, fibrocystic breast changes, anxiety; no surgery; no tobacco use substance use alcohol use; nursing notes reviewed Asthma: Yes (as a child) Anxiety: Yes Diminished Hearing: No Gastrointestinal Disorders: No Immunizations Current: Yes Influenza Vaccination: No ?: Not LMP: 07/02/16 : 0 Past Surgical History Surgical History: No Previous Surgery Other Surgery: No Social History Alcohol Use: No Tobacco Use: No Substance Use: No Allergies-Medications (Allergen,Severity, Reaction): Coded Allergies: No Known Allergies (Verified , 07/25/16) Reported Meds & Prescriptions Reported Meds & Active Scripts Active Cipro (Ciprofloxacin HCl) 500 Mg Tab 500 Mg PO BID 7 Days Review of Systems Except as stated in HPI: all other systems reviewed are Neg Physical Exam Narrative GENERAL: Well-developed well-nourished female in no acute distress no respiratory distress; GCS 15; no stridor no hoarseness SKIN: Warm and dry. HEAD: Normocephalic. EYES: No scleral icterus. No injection or drainage. ENT: Mucous membranes moist airway is patent NECK: Supple, trachea midline. No JVD or lymphadenopathy. CARDIOVASCULAR: Regular rate and rhythm without murmurs, gallops, or rubs. Chest wall: Nontender to direct palpation no induration no erythema no point tenderness no bony tenderness. RESPIRATORY: Breath sounds equal bilaterally. No accessory muscle use. GASTROINTESTINAL: Abdomen soft, non-tender, nondistended. MUSCULOSKELETAL: No cyanosis, or edema. BACK: Nontender without obvious deformity. No CVA tenderness. Data Data Last Documented VS Vital Signs Date Time Temp Pulse Resp B/P Pulse Ox O2 Delivery O2 Flow Rate FiO2 07/25/16 01:49 75 16 100/66 100 Room Air 07/25/16 00:07 98.5 Orders Chest, Pa & Lat (07/25/16 ) Electrocardiogram (07/25/16 ) [facility] Medical Decision Making Medical Screen Exam Complete: Yes Emergency Medical Condition: Yes Medical Record Reviewed: Yes Interpretation(s) Chest x-ray: No lobar infiltrate no acute abnormality FINDINGS: PA and lateral views of the chest demonstrate the lungs to be symmetrically aerated without evidence of mass, infiltrate or effusion. The cardiomediastinal contours are unremarkable. Osseous structures are intact. CONCLUSION: No acute disease. No significant change has occurred. Osbaldo Hunter MD on July 25, 2016 at 2:25 Board Certified Radiologist. This report was verified electronically. EKG normal sinus rhythm rate 85 normal axis and intervals no ST segment elevation ST segment depression or ectopy Differential Diagnosis Chest pain, atypical chest pain, musculoskeletal pain, pleurisy, costochondritis , pneumonia, also consider pneumothorax Narrative Course Patient did not want to have testing performed that she states she just had this study done and it was negative and she is not last period was normal for her 07/02/16 EKG performed which reveals no acute injury pattern change or abnormality; chest x-ray performed Diagnosis Primary Impression: Atypical chest pain Referrals: Primary Care Physician call for appointment Patient Instructions: General Instructions Additional Instructions: Follow-up with primary care provider May take acetaminophen/Tylenol as often as every 4-6 hours for pain May take IV Profen/Advil/Motrin every 6-8 hours as needed for pain associated with inflammation Return to the emergency department for any concerns or change in condition Med/Other Pt SpecificInfo: No Change to Meds Disposition: 01 DISCHARGE HOME Condition: Stable Patricia Cabrera MD July 25, 2016 01:15
[2016-07-25 01:49] VITALS: BP 100/66; PULSE 75; RESP 16; O2SAT 100
--- NOTE | 2016-07-25 02:28 | RADHPO ---
EXAM DATE/TIME: 07/25/2016 01:15 [facility] COMPARISON: CHEST PA & LAT, June 23, 2016, 18:22. INDICATIONS : Chest pain. MEDICAL HISTORY : None. SURGICAL HISTORY : None. ENCOUNTER: Initial ACUITY: 1 day PAIN SCORE: 5/10 LOCATION: Bilateral chest FINDINGS: PA and lateral views of the chest demonstrate the lungs to be symmetrically aerated without evidence of mass, infiltrate or effusion. The cardiomediastinal contours are unremarkable. Osseous structure s are intact. CONCLUSION: No acute disease. No significant change has occurred. Osbaldo Hunter MD on July 25, 2016 at 2:25 Board Certified Radiologist. This report was verified electronically.
--- NOTE | 2016-07-25 16:51 | EKG ---
Date Performed: 07/25/2016 Time Performed: 00:53:44 PTAGE: 20 years EKG: Sinus rhythm Normal ECG PREVIOUS TRACING : 07/01/2016 21.37 Compared to prior tracing no significant change DOCTOR: Regine Navarro Interpretating Date/Time 07/25/2016 16:47:47
== END 2016-07-25 02:53 | disposition home or self-care (01) ==
LOC: PHED 00:02
DX: R07.89 Other chest pain (principal)
CPT/HCPCS: 71020; 93005

== ENCOUNTER 2016-08-06 19:38 | Emergency (ER) | payer OTHER ==
[~2016-08-06] VITALS: Ht 170.2 cm; Wt 89.7 kg
[2016-08-06 19:46] VITALS: BP 108/68; PULSE 84; RESP 14; TEMP 98.3; O2SAT 100
[2016-08-06] MEDS ORDERED: IBUPROFEN 600 MG TAB PO ONE (20:00)
[2016-08-06] MEDS ORDERED: RESP: ALBUTEROL 2.5 MG/3 ML NEB (SCH) INH ONE (20:00)
--- NOTE | 2016-08-06 20:01 | PD ---
HPI Chief Complaint: shortest of breath Time Seen by Provider: 19:58 Travel History International Travel<30 days: No Contact w/Intl Traveler<30days: No Traveled to known affect area: No History of Present Illness HPI 20-year-old female here for evaluation of shortness of breath and chest tightness. Patient reports symptoms of it going on for last 2 hours and she feels as though she may need a breathing treatment. She reports history of asthma as a child. She is a nonsmoker. Patient also complains of a diffuse slight headache that started at the same time of her shortness of breath. Patient has been seen in the emergency department several times for very similar presentations. I personally evaluated her 6 months ago for the same. No history of DVT or PE. No cough. No hemoptysis. PFSH Past Medical History Asthma: Yes (as a child) Anxiety: Yes Diminished Hearing: No Gastrointestinal Disorders: No Immunizations Current: Yes : 0 Past Surgical History Other Surgery: No Social History Alcohol Use: No Tobacco Use: No Substance Use: No Allergies-Medications (Allergen,Severity, Reaction): Coded Allergies: No Known Allergies (Verified , 08/06/16) Reported Meds & Prescriptions Reported Meds & Active Scripts Active Review of Systems Except as stated in HPI: all other systems reviewed are Neg Physical Exam Narrative GENERAL: Well-developed, well-nourished, very well-appearing. Smiling. No acute distress. SKIN: Focused skin assessment warm/dry. No rash. No pallor. HEAD: Atraumatic. Normocephalic. EYES: Pupils equal and round. No scleral icterus. No injection or drainage. ENT: Mucous membranes pink and moist. NECK: Trachea midline. No JVD. CARDIOVASCULAR: Regular rate and rhythm. No murmur appreciated. RESPIRATORY: No accessory muscle use. Clear to auscultation. Breath sounds equal bilaterally. Hepatic and splenic margins not palpable. MUSCULOSKELETAL: No obvious deformities. No clubbing. No cyanosis. No edema. NEUROLOGICAL: Awake and alert. No obvious cranial nerve deficits. Motor grossly within normal limits. Normal speech. PSYCHIATRIC: Appropriate mood and affect; insight and judgment normal. Data Data Last Documented VS Vital Signs Date Time Temp Pulse Resp B/P Pulse Ox O2 Delivery O2 Flow Rate FiO2 08/06/16 20:03 100 Room Air 08/06/16 19:46 98.3 84 14 108/68 Orders Electrocardiogram (08/06/16 19:58) Albuterol Neb (Albuterol Neb) (08/06/16 20:00) Ibuprofen (Motrin) (08/06/16 20:00) [facility] Medical Decision Making Medical Screen Exam Complete: Yes Emergency Medical Condition: Yes Medical Record Reviewed: Yes Interpretation(s) EKG: Sinus, rate 88, normal axis, normal intervals, no acute ischemic abnormality. Differential Diagnosis Reactive airway disease, asthma, pneumonia, pneumothorax, ACS unlikely, PE unlikely (PERC negative), meningitis/encephalitis/SAH unlikely Narrative Course Vital signs show heart rate 84, blood pressure 108/68, pulse ox 100% on room air , oral temp of 98.3F. Patient is PERC negative. Patient was given one albuterol treatments, and ibuprofen, and reports feeling 100% better. She refused chest x-ray. She is stable for discharge home with outpatient follow-up with her primary care physician this week. She was informed on when to return to the emergency department. She verbalizes understanding and agreement with plan. Diagnosis Primary Impression: Dyspnea Qualified Code: R06.00 - Dyspnea, unspecified type Referrals: Primary Care Physician 3 days Additional Instructions: Follow-up with your primary care physician this week. Return to the emergency department for worsening symptoms or any other concerns. Disposition: 01 DISCHARGE HOME Condition: Stable Felxi Logan MD Aug 06, 2016 20:01
[2016-08-06 20:29] VITALS: BP 110/66; TEMP 98.3
--- NOTE | 2016-08-07 13:56 | EKG ---
Date Performed: 08/06/2016 Time Performed: 20:02:48 PTAGE: 20 years EKG: Sinus rhythm Compared to prior tracing no significant change Normal ECG PREVIOUS TRACING : 07/25/2016 00.53 DOCTOR: Dirk Nesbitt Interpretating Date/Time 08/07/2016 13:55:52
== END 2016-08-06 20:43 | disposition home or self-care (01) ==
LOC: PHED 19:38
DX: R06.00 Dyspnea, unspecified (principal); R07.89 Other chest pain; R51 Headache; Z87.09 Personal history of other diseases of the respiratory system; Z86.59 Personal history of other mental and behavioral disorders
CPT/HCPCS: 93005; 94664; 99283; J7613

== ENCOUNTER 2016-08-25 00:26 | Emergency (ER) | payer OTHER ==
[~2016-08-25] VITALS: Ht 167.6 cm; Wt 91.7 kg
[2016-08-25 00:30] VITALS: BP 110/79; PULSE 71; RESP 14; TEMP 98.4; O2SAT 100
--- NOTE | 2016-08-25 00:52 | PD ---
HPI Chief Complaint: Headache Time Seen by Provider: 00:50 Travel History International Travel<30 days: No Contact w/Intl Traveler<30days: No Traveled to known affect area: No History of Present Illness HPI 20 year-old female presents to the emergency department for complaint of 3 weeks of tingling in her brain. Patient reports that patient intermittently is aware that she has tingling in her brain that moves from side to side. Patient does not report sudden onset worst ever or thunderclap headache. Patient does not report injury or fall. Patient does not report fever or chills. Patient does report that sometimes she has eyestrain. Patient reports that she plans on seeing and is in throat specialist tomorrow as well as an eye doctor tomorrow. Patient reports she's been told the past that she has fluid in her ears. Patient reports that she is very anxious. Patient reports that she has not had new upper or lower extremity numbness tingling or weakness or ataxia of gait. Patient does not report any chest pain or shortness of breath. Patient states that she is concerned that perhaps since she had a fall several months ago at her place of work that she has not been her normal self. Patient complains of myalgias and arthralgias. Patient did not hit her head or have loss of consciousness. Patient does not report any cough congestion sore throat earache chest pain shortness of breath abdominal pain nausea vomiting diarrhea dysuria frequency urgency flank pain at home vaginal discharge or vaginal bleeding. Patient denies . Patient states that she is concerned about anxiety. Patient does not volunteer any specific stressors that may be making her anxious. Patient has not followed up with a primary care provider or mental health provider. Patient reports that she has been seen in the emergency department numerous times for various complaints. Patient rates pain 0/10 in intensity. PFSH Past Medical History Narrative Medical Asthma, anxiety; no surgery; no tobacco use; nursing notes reviewed Asthma: Yes (as a child) Anxiety: Yes Diminished Hearing: No Gastrointestinal Disorders: No Immunizations Current: Yes LMP: August 02, 2016 : 0 Past Surgical History Other Surgery: No Social History Alcohol Use: No Tobacco Use: No Substance Use: No Allergies-Medications (Allergen,Severity, Reaction): Coded Allergies: No Known Allergies (Verified , 08/25/16) Reported Meds & Prescriptions Reported Meds & Active Scripts Active No Active Prescriptions or Reported Medications Review of Systems Except as stated in HPI: all other systems reviewed are Neg Physical Exam Narrative GENERAL: Well-developed well-nourished female in no acute distress no respiratory distress; GCS is 15 SKIN: Warm and dry. HEAD: Atraumatic. Normocephalic. EYES: Pupils equal and round. No scleral icterus. No injection or drainage. Extraocular muscles intact. Funduscopic exam no papilledema. ENT: No nasal bleeding or discharge. Mucous membranes pink and moist. Tympanic membranes no redness dullness loss of landmarks or perforation. External auditory canal clear. NECK: Trachea midline. No JVD. Supple no meningismus. CARDIOVASCULAR: Regular rate and rhythm. RESPIRATORY: No accessory muscle use. Clear to auscultation. Breath sounds equal bilaterally. GASTROINTESTINAL: Abdomen soft, non-tender, nondistended. Hepatic and splenic margins not palpable. MUSCULOSKELETAL: Extremities without clubbing, cyanosis, or edema. No obvious deformities. NEUROLOGICAL: Awake and alert. No obvious cranial nerve deficits. Motor grossly within normal limits. Five out of 5 muscle strength in the arms and legs. No pronator drift. Limb ataxia. DTRs 2+ and equal. Sensory exam intact. Negative Romberg. Normal speech. PSYCHIATRIC: Appropriate mood and affect; insight and judgment normal. Data Data Last Documented VS Vital Signs Date Time Temp Pulse Resp B/P Pulse Ox O2 Delivery O2 Flow Rate FiO2 08/25/16 00:50 Room Air 08/25/16 00:30 98.4 71 14 110/79 100 MDM Medical Decision Making Medical Screen Exam Complete: Yes Emergency Medical Condition: Yes Medical Record Reviewed: Yes Differential Diagnosis Anxiety, eyestrain, viral syndrome, tension headache Narrative Course Long conversation with patient contacted after normal physical exam identified patient not desirous of any imaging or testing to be done and at this time there is no indication that lab tests or imaging studies are indicated. 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 Patient reports she is comfortable with this information and appears stable for outpatient management at this time. Diagnosis Primary Impression: Anxiety Referrals: Primary Care Physician call for appointment Patient Instructions: General Instructions Additional Instructions: Follow-up with primary care provider Decrease caffeine consumption Return to the emergency department for any concerns or change in condition Med/Other Pt SpecificInfo: No Meds Exist/No RX given Scripts No Active Prescriptions or Reported Meds Disposition: DISCHARGE HOME Condition: Patricia Christianson MD Aug 25, 2016 00:52
== END 2016-08-25 01:05 | disposition home or self-care (01) ==
LOC: PHED 00:26
DX: F41.9 Anxiety disorder, unspecified (principal)
CPT/HCPCS: 99282

== ENCOUNTER 2016-09-07 20:19 | Emergency (ER) | payer OTHER ==
[~2016-09-07] VITALS: Ht 167.6 cm; Wt 92.0 kg
[2016-09-07 20:20] VITALS: BP 119/66; PULSE 69; RESP 16; TEMP 98.7; O2SAT 100
[2016-09-07] MEDS ORDERED: NAPR500T PO (20:54)
--- NOTE | 2016-09-07 20:55 | PD ---
HPI Chief Complaint: Headache Time Seen by Provider: 20:39 Travel History International Travel<30 days: No Contact w/Intl Traveler<30days: No Traveled to known affect area: No History of Present Illness HPI This is a 20-year-old female who presents to the emergency department with multiple complaints including headaches that have been going on for a month and a half involving her whole head, aching, moderate severity with no associated vomiting or weakness. She also reports that this morning she woke up and the back of her head was numb and she was worried so she came to the emergency department. She says that she's been seen by her doctor in the past and he told her she has anxiety and tried to start her on hydroxyzine but she didn't want to take it because it has a lot of side effects. She also is reporting some dysuria and thinks she may not been completely cured from a UTI that she got antibiotics for 2 weeks ago. PFSH Past Medical History Asthma: Yes (as a child) Anxiety: Yes Diminished Hearing: No Gastrointestinal Disorders: No Immunizations Current: Yes ?: Not LMP: 08/31/16 : 0 Past Surgical History Other Surgery: No Social History Alcohol Use: No Tobacco Use: No Substance Use: No Allergies-Medications (Allergen,Severity, Reaction): Coded Allergies: No Known Allergies (Verified , 09/07/16) Reported Meds & Prescriptions Reported Meds & Active Scripts Active Naproxen 500 Mg Tab 500 Mg PO BID PRN Review of Systems Except as stated in HPI: all other systems reviewed are Neg Physical Exam Narrative GENERAL:Well appearing, no acute distress SKIN: Focused skin assessment warm and dry. HEAD: Atraumatic. Normocephalic. EYES: Pupils equal and round. No injection or drainage. ENT: Moist mucous membranes NECK: Trachea midline. CARDIOVASCULAR: Regular rate and rhythm. No murmur appreciated. RESPIRATORY: Clear to auscultation. Breath sounds equal bilaterally. GASTROINTESTINAL: Abdomen soft, non-tender, nondistended. MUSCULOSKELETAL: No obvious deformities. NEUROLOGICAL: Awake and alert. No obvious cranial nerve deficits. No dysarthria or aphasia. No upper or lower extremity drift. No upper extremity ataxia. PSYCHIATRIC: Somewhat flat bizarre affect, mood is incongruent with statements Data Data Last Documented VS Vital Signs Date Time Temp Pulse Resp B/P Pulse Ox O2 Delivery O2 Flow Rate FiO2 09/07/16 20:20 98.7 69 16 119/66 100 Room Air Orders Naproxen (Naprosyn) (09/07/16 21:00) Urinalysis - C+S If Indicated (09/07/16 20:55) Labs Laboratory Tests Test 09/07/16 20:58 Urine Color YELLOW Urine Turbidity CLEAR Urine pH 6.5 Urine Specific [place] 1.021 Urine Protein NEG mg/dL Urine Glucose (UA) NEG mg/dL Urine Ketones NEG mg/dL Urine Occult Blood TRACE Urine Nitrite NEG Urine Bilirubin NEG Urine Urobilinogen LESS THAN 2.0 MG/DL Urine Leukocyte Esterase NEG Urine RBC 2 /hpf Urine WBC LESS THAN 1 /hpf Urine Squamous Epithelial 2 /hpf Cells Microscopic Urinalysis Comment CULT NOT INDICATED MDM Medical Decision Making Medical Screen Exam Complete: Yes Emergency Medical Condition: Yes Interpretation(s) urinalysis: no infection Differential Diagnosis uti, migraine headache, tension headache, occipital neuralgia Narrative Course This is a 20-year-old female who presents to the emergency department with multiple complaints including chronic headache has been going on for a month and a half, some numbness in the back of her head and some dysuria. She has a bizarre affect on exam, is fairly flat and seems a little bit anxious. I suspect most of her presentation is related to an underlying psychiatric illness. I don't suspect an acute emergent etiology of her headaches. I advised her if she wanted to get more evaluation she can get an MRI as an outpatient and that would be higher yield than CT imaging in the ER as her headaches are chronic. Urinalysis was obtained. Patient can be discharged home. Diagnosis Primary Impression: Anxiety Patient Instructions: General Instructions Additional Instructions: If you develop severe worsening headache, persistent vomiting, numbness, weakness, difficulty walking or difficulty talking return to the emergency department immediately. Sometimes in the emergency department we did not identify the cause of headaches. If you continued to have headaches it is very important that you followup with your primary care physician as you may need further testing with an MRI. Med/Other Pt SpecificInfo: Prescription(s) given Scripts Naproxen 500 Mg [id number] Mg PO BID PRN (PAIN SCALE 4 TO 10) #20 TAB Prov:Lin Morillo MD 09/07/16 Disposition: 01 DISCHARGE HOME Condition: Stable Lin Morillo MD Sep 07, 2016 20:54
[2016-09-07] MEDS ORDERED: NAPROXEN 500 MG TAB PO ONE (21:00)
[2016-09-07 21:09] LABS: BLOOD, URINE TRACE (NEG); GLUCOSE,URINE NEG (NEG); KETONE, URINE NEG (NEG); NITRITE,URINE NEG (NEG); PH, URINE 6.5 (5.0-8.5); SQUAMOUS EPITHELIAL CELL URINE 2 /hpf (0-5); URINE COLOR YELLOW (YELLW/STRAW)
[2016-09-07 21:16] LABS: COMMENT (UR) CULT NOT INDICATED; CULTURE IF INDICATED CULT NOT INDICATED
== END 2016-09-07 21:33 | disposition home or self-care (01) ==
LOC: NEPD 20:19
DX: F41.9 Anxiety disorder, unspecified (principal); R51 Headache
CPT/HCPCS: 81001; 99283